=== PATIENT | male | born 1955 | race Caucasian/White ===

== ENCOUNTER 2020-05-10 17:22 | Outpatient (REF) | payer OTHER, SELFPAY | END 2020-05-10 17:23 | disposition home or self-care (01) | LOC: HO.LAB 17:22 | PROVIDERS: Visit Provider Internal Medicine | DX: Z20.828 Contact with and (suspected) exposure to other viral communicable diseases (principal) | CPT/HCPCS: C9803; U0003 ==

== ENCOUNTER → 2021-12-05 09:42 | Outpatient (BNVA) | payer OTHER, SELFPAY | PROVIDERS: PCP Internal Medicine; Visit Provider Surgery Vascular Surgery | DX: I71.4 Abdominal aortic aneurysm, without rupture (principal); K40.20 Bilateral inguinal hernia, without obstruction or gangrene, not specified as recurrent; Z79.82 Long term (current) use of aspirin; Z79.899 Other long term (current) drug therapy | CPT/HCPCS: 99202 ==

== ENCOUNTER → 2021-12-06 10:18 | Outpatient (BNVA) | payer OTHER, SELFPAY | PROVIDERS: PCP Internal Medicine; Visit Provider Surgery | DX: K40.20 Bilateral inguinal hernia, without obstruction or gangrene, not specified as recurrent (principal); I71.4 Abdominal aortic aneurysm, without rupture; I10 Essential (primary) hypertension; E78.00 Pure hypercholesterolemia, unspecified; Z95.5 Presence of coronary angioplasty implant and graft | CPT/HCPCS: 99202 ==

== ENCOUNTER → 2021-12-20 10:00 | Outpatient (BNVA) | payer OTHER, SELFPAY | PROVIDERS: PCP Internal Medicine; Visit Provider Surgery | DX: K40.20 Bilateral inguinal hernia, without obstruction or gangrene, not specified as recurrent (principal); I71.4 Abdominal aortic aneurysm, without rupture; E78.00 Pure hypercholesterolemia, unspecified; I10 Essential (primary) hypertension; K76.9 Liver disease, unspecified; Z95.5 Presence of coronary angioplasty implant and graft | CPT/HCPCS: 99212 ==

== ENCOUNTER 2022-12-05 09:12 | Outpatient (REF) | payer OTHER, SELFPAY | END 2022-12-05 09:13 | disposition home or self-care (01) | LOC: HO.US 09:12 | PROVIDERS: Visit Provider Surgery Vascular Surgery | DX: I71.40 Abdominal aortic aneurysm, without rupture, unspecified (principal) | CPT/HCPCS: 76706 ==

== ENCOUNTER 2023-01-24 08:40 | Outpatient (AMB) | payer OTHER, SELFPAY ==
--- NOTE | 2023-01-24 08:52 | A.OFFVIS_ITS ---
Intake Vital Signs 01/24/23 08:54 Height 5 ft 4 in Weight 130 lb BMI 22.3 BP 128/82 Blood Pressure Location Rt brachial Position Sitting Pulse 67 Pulse Source Pulse Oximeter Pulse Oximetry (%) 98 Oxygen Delivery Method Room Air Intake Visit Reasons: 1 year follow up AAA 12/05 Intake Note: Pt presents to the office for a 1 year follow up AAA. Pt states he is feeling good with no complaints. Allergies sulfamethazine Allergy (Mild, Verified 01/24/23 08:54) Hives sulfamethoxazole [From Bactrim] Allergy (Mild, Verified 01/24/23 08:54) Hives trimethoprim [From Bactrim] Allergy (Mild, Verified 01/24/23 08:54) Hives HPI 1 year follow up AAA 12/05 HPI Details Very pleasant 67-year-old gentleman presents for routine surveillance follow-up regarding and an aortic aneurysm. He was originally seen at [facility] where they E identified on CT scan at 3 cm aneurysm. He also has bilateral inguinal hernias. He has not had surgery on his hernias but has been continued to undergo evaluation regarding renal stones and hematuria. He now presents for follow-up. [facility] Medical History Hernia Hypercholesteremia Hypertension Surgical History History of heart artery stent (08/18/11) Social History Patient Tobacco Use Status: Former Tobacco user Quit Date: 08/13/2011 Review of Systems Const All systems reviewed & are unremarkable except as noted in HPI and below Reports no additional complaints ENT Reports Normal hearing present Card Denies chest pain, Denies chest pain at rest, Denies chest pain with activity and Denies pedal edema Resp Denies cough GI Denies abdominal pain Musc Denies abnormal gait, Denies muscle cramps and Denies radiating pain into limb Skin/Breast Denies skin ulcer and Denies wounds Neuro Reports Normal hearing present and Denies abnormal gait Psych Reports no additional complaints Physical Exam Vital Signs: Last Vital Signs Pulse 67 01/24/23 08:54 BP 128/82 01/24/23 08:54 Pulse Ox 98 01/24/23 08:54 Oxygen Delivery Method Room Air 01/24/23 08:54 BMI result Body Mass Index 22.3 Const General: cooperative, healthy appearing and comfortable Orientation/consciousness: oriented to person, oriented to place and oriented to time HEENT Head: Yes normal to inspection Neck Neck: Yes normal visual inspection Carotids: no bruits Chest Chest palpation & inspection: normal inspection of the chest Resp Effort & Inspection: normal respiratory effort and able to speak in complete sentences Auscultation: clear to auscultation bilaterally, no crackles, no rales, no rhonchi and no wheezes Cardio Rate: regular rate Rhythm: regular rhythm Heart sounds: S1 normal heart sound present and S2 normal heart sound present Bruits: no carotid bruits Peripheral pulses: Peripheral pulses 2+ throughout GI Inspection: Yes normal to inspection Skin Wounds: no wounds Hair: normal Neuro General: oriented to person, oriented to place and oriented to time Cranial nerves: Yes CN's II-XII intact bilaterally and Yes Normal hearing present Cognition (Neuro): normal cognition Motor exam (neuro): 5/5 motor strength present throughout Extrem Other: venous exam: No significant superficial varicosities or spider telangiectasias, minimal edema General: No clubbing, No cyanosis and No edema Psych Appearance: grossly normal Mental Status: mental status grossly normal Speech and movement: Normal speech and movement present Results Reviewed Results Reviewed: Aortic testing dated 12/05/2022 on ultrasound demonstrates a 2.7 cm aneurysm Assessment & Plan Assessment & Plan (1) AAA (abdominal aortic aneurysm) without rupture: Code(s): I71.4 - Abdominal aortic aneurysm, without rupture Plan: In short patient has radiologic evidence of a AAA on on ultrasound of about 3 cm. We have discussed the pathophysiology of aortic aneurysms and the risk of ruptures. We have discussed rupture risk based on size. In addition we have discussed conservative measures and risk factor modification for prevention of increase in size of the aneurysm. the patient is scheduled for surveillance follow-up in approximately 1 year. Thank you for allowing us to participate in the care of this patient Orders: Orders US abdominal aortic aneurysm 364 Days I71.4 - Abdominal aortic aneurysm, without rupture Coding Level of Care Code Est Pt Level 4 (58289) Diagnoses AAA (abdominal aortic aneurysm) without rupture I71.4
[2023-01-24 08:54] VITALS: BP 128/82; PULSE 67; O2SAT 98; BMI 22.3
== END 2023-01-24 09:36 | disposition home or self-care (01) ==
PROVIDERS: PCP Internal Medicine; Visit Provider Surgery Vascular Surgery
DX: I71.40 Abdominal aortic aneurysm, without rupture, unspecified (principal)
CPT/HCPCS: 99213

== ENCOUNTER → 2023-01-24 08:40 | Outpatient (BNVA) | payer OTHER, SELFPAY | PROVIDERS: PCP Internal Medicine; Visit Provider Surgery Vascular Surgery | DX: I71.40 Abdominal aortic aneurysm, without rupture, unspecified (principal) | CPT/HCPCS: 99212 ==

== ENCOUNTER 2024-01-13 08:02 | Outpatient (REF) | payer OTHER, SELFPAY ==
--- NOTE | ~2024-01-13 | US_ITS ---
EXAMINATION: US RETROPERITONEAL LIMITED (AORTA) CLINICAL INFORMATION: Abdominal aortic aneurysm, without rupture. COMPARISON: US retroperitoneal limited (aorta) 12/05/2022. TECHNIQUE: Fletcher-scale, color Doppler and spectral Doppler evaluation of the abdominal aorta. FINDINGS: Abdominal aorta is normal in caliber. The measurements of the aorta in maximum AP and transverse dimensions respectively are as follows: Proximal: 2.8 x 2.6 cm. Mid: 2.1 x 2.1 cm. Distal: 3.0 x 3.0 cm. PSV: 68.4 cm/s. The measurements of the common iliac arteries in maximum AP and TRV dimensions are as follows: Right Common Iliac Artery: 1.2 x 1.4 cm. Left Common Iliac Artery: 1.3 x 1.3 cm. US/US abdominal aortic aneurysm IMPRESSION: 3.0 x 3.0 cm infrarenal abdominal aortic aneurysm, previously measuring 2.9 x 2.8 cm.
== END 2024-01-13 08:03 | disposition home or self-care (01) ==
LOC: HO.US 08:02
PROVIDERS: PCP Internal Medicine; Visit Provider Surgery Vascular Surgery
DX: I71.40 Abdominal aortic aneurysm, without rupture, unspecified (principal)
CPT/HCPCS: 76706

== ENCOUNTER 2024-02-13 09:59 | Outpatient (AMB) | payer OTHER, SELFPAY ==
--- NOTE | 2024-02-13 10:01 | MHC.OFFVIS ---
Vital Signs 02/13/24 10:03 Height 5 ft 4 in Weight 130 lb BMI 22.3 Intake Visit Reasons: Follow Up 01/12 AAA Intake Note: 1 yr follow up AAA US 01/13/24, no complaints other than Left foot numbness and nerve pain on left leg Transportation Worker Required: No Accompanied by: Self / Same As Patient Allergies sulfamethazine Allergy (Mild, Verified 02/13/24 10:06) Hives sulfamethoxazole [From Bactrim] Allergy (Mild, Verified 02/13/24 10:06) Hives trimethoprim [From Bactrim] Allergy (Mild, Verified 02/13/24 10:06) Hives HPI HPI Follow Up 01/12 AAA: Details: Very pleasant 61-year-old gentleman presents for routine surveillance ultrasound of his aorta. He has had no interval issues. Reports he is doing relatively well. He does have occasional left lower extremity pain more so down the lateral aspect of the leg and he was concerned about that. Now presents for routine surveillance follow-up with arterial testing. Of note he is being maintained on an aspirin and statin. [facility] Medical History (Updated 02/13/24 @ 12:27 by Brandon Johnson MD) Hernia Hypertension Hypercholesteremia Surgical History (Updated 02/13/24 @ 10:07 by TOMMIE Freedman) History of left knee replacement (~2022) History of heart artery stent (08/18/11) Social History Patient Tobacco Use Status: Former Tobacco user Review of Systems Const All systems reviewed & are unremarkable except as noted in HPI and below Reports no additional complaints ENT Reports Normal hearing present Card Denies chest pain, Denies chest pain at rest, Denies chest pain with activity and Denies pedal edema Resp Denies cough GI Denies abdominal pain Musc Denies abnormal gait, Denies muscle cramps and Denies radiating pain into limb Skin/Breast Denies skin ulcer and Denies wounds Neuro Reports Normal hearing present and Denies abnormal gait Psych Reports no additional complaints Physical Exam Vital Signs: BMI result Body Mass Index 22.3 Const General: cooperative, healthy appearing and comfortable Orientation/consciousness: oriented to person, oriented to place and oriented to time HEENT Head: Yes normal to inspection Neck Neck: Yes normal visual inspection Carotids: no bruits Chest Chest palpation & inspection: normal inspection of the chest Resp Effort & Inspection: normal respiratory effort and able to speak in complete sentences Auscultation: clear to auscultation bilaterally, no crackles, no rales, no rhonchi and no wheezes Cardio Other: Left leg palpable DP and PT pulse Rate: regular rate Rhythm: regular rhythm Heart sounds: S1 normal heart sound present and S2 normal heart sound present Bruits: no carotid bruits Peripheral pulses: Peripheral pulses 2+ throughout GI Inspection: Yes normal to inspection Skin Wounds: no wounds Hair: normal Neuro General: oriented to person, oriented to place and oriented to time Cranial nerves: Yes CN's II-XII intact bilaterally and Yes Normal hearing present Cognition (Neuro): normal cognition Motor exam (neuro): 5/5 motor strength present throughout Extrem Other: venous exam: No significant superficial varicosities or spider telangiectasias, minimal edema General: No clubbing, No cyanosis and No edema Psych Appearance: grossly normal Mental Status: mental status grossly normal Speech and movement: Normal speech and movement present Results Reviewed Results Reviewed: Aortic ultrasound dated 01/13/2024 demonstrates aorta of 3 cm Assessment & Plan Assessment & Plan (1) AAA (abdominal aortic aneurysm) without rupture: Code(s): I71.4 - Abdominal aortic aneurysm, without rupture Category: Medical Qualifiers: Abdominal aorta location: infrarenal aorta Qualified Code(s): I71.43 - Infrarenal abdominal aortic aneurysm, without rupture Plan: In short patient has radiologic evidence of a AAA on ultrasound of 3 cm. We have discussed the pathophysiology of aortic aneurysms and the risk of ruptures. We have discussed rupture risk based on size. In addition we have discussed conservative measures and risk factor modification for prevention of increase in size of the aneurysm. the patient is scheduled for surveillance follow-up in approximately 1 year. Thank you for allowing us to participate in the care of this patient Please note a longitudinal relationship has been created with the patient and we have been following and surveillance this chronic condition. (2) Left leg pain: Code(s): M79.605 - Pain in left leg Category: Medical Plan: I do believe the leg pain is more musculoskeletal in nature. Should it persist may benefit from orthopedic evaluation. He does have palpable dorsalis pedis and posterior tibial pulses. Orders: Orders US abdominal aortic aneurysm 1 Year I71.43 - Infrarenal abdominal aortic aneurysm, without rupture Coding Level of Care Code Est Pt Level 4 (19503) Complex EM visit Add On G2211 Diagnoses Infrarenal abdominal aortic aneurysm (AAA) without rupture I71.43 Abdominal aorta location: infrarenal aorta Left leg pain M79.605
[2024-02-13 10:03] VITALS: BMI 22.3
== END 2024-02-13 10:27 | disposition home or self-care (01) ==
PROVIDERS: PCP Internal Medicine; Visit Provider Surgery Vascular Surgery
DX: I71.43 Infrarenal abdominal aortic aneurysm, without rupture (principal); M79.605 Pain in left leg
CPT/HCPCS: 99214; G2211

== ENCOUNTER → 2024-02-13 09:59 | Outpatient (BNVA) | payer OTHER, SELFPAY | PROVIDERS: PCP Internal Medicine; Visit Provider Surgery Vascular Surgery | DX: I71.43 Infrarenal abdominal aortic aneurysm, without rupture (principal); M79.605 Pain in left leg | CPT/HCPCS: 99212 ==

== ENCOUNTER 2025-02-05 08:47 | Outpatient (REF) | payer OTHER, SELFPAY ==
--- NOTE | ~2025-02-05 | US_ITS ---
EXAMINATION: US RETROPERITONEAL LIMITED (AORTA) CLINICAL INFORMATION: Follow-up abdominal aortic aneurysm. COMPARISON: January 13, 2024 and December 05, 2022. TECHNIQUE: Fletcher-scale, color Doppler and spectral Doppler evaluation of the abdominal aorta. FINDINGS: There is a hyperechoic lesion within the left lobe of the liver measuring 2.9 x 3.5 x 3.6 cm. Previously 2.7 x 4.2 x 3.5 cm. The measurements of the aorta in maximum AP and transverse dimensions respectively are as follows: Proximal: 2.3 x 2.6 cm. Previously 2.8 x 2.6 cm diameter. Mid: 2.3 x 1.8 cm. Previously 2.1 x 2.1 centimeter Distal: 3.0 x 2.2 cm. Previously 3.0 x 3.0 cm. The measurements of the common iliac arteries in maximum dimensions are as follows: Right: AP: 1.2 cm. TRV: 1.5 cm. Previously 1.2 x 1.4 cm. Left: AP: 1.5 cm. TRV: 1.2 cm. Previously 1.3 x 1.3 cm. US/US abdominal aortic aneurysm IMPRESSION: Indeterminate liver lesion measuring 2.5 x 3.5 x 3.6 cm. Follow-up with MRI abdomen/liver without and with IV contrast. The lesion was present in December 05, 2022 and may represent a cavernous hemangioma. Borderline abdominal aortic aneurysm in the distal region. Lumen measures 3.0 x 2.2 cm, previously 3.0 x 3.0 cm.. Electronically signed by: Abdoul Cam MD 02/05/2025 10:50 AM EDT
--- OUTSIDE RECORDS SUMMARY | 2025-02-05 09:20 | XMS_ITS | Clinical Summary ---
Author Organization [facility] it Address [address] [place] [address] Care Team Providers Care Kick Plate Installer Name Role Phone Margi Badillo MD Primary Care Provider [phone] Medical History Medical History Date Comments Hypertension 10/08/2012 DX:Hypertension Historical Medical DX 10/08/2012 DX:Hyperli pidemia LDL goal < 70 Obesity 10/08/2012 DX:Obesity S/P shoulder surgery 10/08/2012 DX:S/P shou lder surgery; COMMENT: S/p fall Family History Medical History Relation Name Comments Heart attack Father fatal Relation Name Status Comments Father Social History Tobacco Use Types Packs/Day Years Used Date Smoking Tobacco: Former Alcohol Use Standard Drinks/Week Comments Not Asked 0 (1 standard drink = 0.6 oz pur e alcohol) Sex and Gender Information Value Date Recorded Sex Assigned at Not on file Legal Sex Male 2:07 AM EST Gender Identity Not on file Sexual Orientation Not on file Obstetrics History Plan of Treatment Health Maintenance Due Date Last Done Comments DTaP,Tdap,and Td Vaccines (1 - Tdap) 02/04/1975 Pneumococcal Vaccine: 50+ Ye ars (1 of 1 - PCV) 02/04/2006 Zoster Vaccines (1 of 2) 02/04/2006 Abdominal Aortic Aneurysm (A AA) Screen 05/16/2022 Cholesterol Screening (Lipid Panel) 05/16/2022 Colorectal Cancer Screening: Colonoscopy 05/16/2022 Falls Risk Assessment 05/16/2022 Hepatitis C Screening 05/16/2022 Hypertension/CHF/CAD Annual BMP Blood Test 05/16/2022 Social Influencers of Health Screening 05/16/2022 Depression Screening 06/03/2024 COVID-19 Vaccine ( - 2023-2 5 season) 2025 Influenza Vaccine (#1) 2025 RSV Immunization Adult Patie nts (1 - 1-dose 75+ series) 02/04/2031 HIB Vaccines Aged Out No longer eligi ble based on patient's age to complete this topic HPV Vaccines Aged Out No longer eligi ble based on patient's age to complete this topic Hepatitis A Vaccines Aged Out No long er eligible based on patient's age to complete this topic Hepatitis B Vaccines Aged Out No long er eligible based on patient's age to complete this topic IPV Vaccines Aged Out No longer eligi ble based on patient's age to complete this topic MMR Vaccines Aged Out No longer eligi ble based on patient's age to complete this topic Meningococcal ACWY Vaccine Aged Out N o longer eligible based on patient's age to complete this topic Meningococcal B Vaccine Aged Out No l onger eligible based on patient's age to complete this topic RSV Immunization Patients Un sudeep 20 months Aged Out No longer eligible b ased on patient's age to complete this topic Varicella Vaccines Aged Out No longer eligible based on patient's age to complete this topic Care Teams Kick Plate Installer Relationship Specialty Start Date End Date Margi Badillo MD [place]am[address] [place] [id number] PCP - General Internal Medicine 08/29/11
== END 2025-02-05 08:48 | disposition home or self-care (01) ==
LOC: HO.US 08:47
PROVIDERS: Visit Provider Surgery Vascular Surgery
DX: I71.43 Infrarenal abdominal aortic aneurysm, without rupture (principal)
CPT/HCPCS: 76706

== ENCOUNTER → 2025-02-05 08:52 | Outpatient (BNV) | payer OTHER, SELFPAY | PROVIDERS: Visit Provider Radiology Diagnostic Radiology | DX: I71.43 Infrarenal abdominal aortic aneurysm, without rupture (principal) | CPT/HCPCS: 76706 ==

== ENCOUNTER 2025-03-16 09:46 | Outpatient (AMB) | payer OTHER, SELFPAY ==
--- NOTE | 2025-03-16 09:47 | MHC.OFFVIS ---
Vital Signs 03/16/25 09:49 Height 5 ft 4 in Weight 130 lb BMI 22.3 Intake Visit Reasons: 1 year follow up AAA 02/05/25 Intake Note: 1 yr follow up AAA 02/05/25 Allergies sulfamethazine Allergy (Mild, Verified 03/16/25 09:50) Hives sulfamethoxazole (From Bactrim) Allergy (Mild, Verified 03/16/25 09:50) Hives trimethoprim (From Bactrim) Allergy (Mild, Verified 03/16/25 09:50) Hives HPI HPI 1 year follow up AAA 02/05/25: Details: The patient is a 70-year-old male presenting with an annual follow-up for an aortic aneurysm. The ultrasound of the aorta shows no change, which is reassuring to the patient. He now presents for routine aortic surveillance. During the visit, a liver mass was noted, which the patient was previously unaware of. The mass is approximately 3.5 cm in size, and the patient denies any alcohol consumption related to this finding. [facility] Medical History Hernia Hypertension Hypercholesteremia Surgical History History of left knee replacement (~2022) History of heart artery stent (08/18/11) Social History Patient Tobacco Use Status: Former Tobacco user Review of Systems Const All systems reviewed & are unremarkable except as noted in HPI and below Reports no additional complaints ENT Reports Normal hearing present Card Denies chest pain, Denies chest pain at rest, Denies chest pain with activity and Denies pedal edema Resp Denies cough GI Denies abdominal pain Musc Denies abnormal gait, Denies muscle cramps and Denies radiating pain into limb Skin/Breast Denies skin ulcer and Denies wounds Neuro Reports Normal hearing present and Denies abnormal gait Psych Reports no additional complaints Physical Exam Vital Signs: BMI result Body Mass Index 22.3 Const General: cooperative, healthy appearing and comfortable Orientation/consciousness: oriented to person, oriented to place and oriented to time HEENT Head: Yes normal to inspection Neck Neck: Yes normal visual inspection Carotids: no bruits Chest Chest palpation & inspection: normal inspection of the chest Resp Effort & Inspection: normal respiratory effort and able to speak in complete sentences Auscultation: clear to auscultation bilaterally, no crackles, no rales, no rhonchi and no wheezes Cardio Rate: regular rate Rhythm: regular rhythm Heart sounds: S1 normal heart sound present and S2 normal heart sound present Bruits: no carotid bruits Peripheral pulses: Peripheral pulses 2+ throughout GI Inspection: Yes normal to inspection Skin Wounds: no wounds Hair: normal Neuro General: oriented to person, oriented to place and oriented to time Cranial nerves: Yes CN's II-XII intact bilaterally and Yes Normal hearing present Cognition (Neuro): normal cognition Motor exam (neuro): 5/5 motor strength present throughout Extrem Other: venous exam: No significant superficial varicosities or spider telangiectasias, minimal edema General: No clubbing, No cyanosis and No edema Psych Appearance: grossly normal Mental Status: mental status grossly normal Speech and movement: Normal speech and movement present Results Reviewed Results Reviewed: Aortic ultrasound measures 3 cm in diameter. Of note there is an indeterminate liver lesion a proximally 3.6 cm. Study from 02/05/2025. Written report and images were reviewed. Assessment & Plan Assessment & Plan (1) AAA (abdominal aortic aneurysm) without rupture: Code(s): I71.4 - Abdominal aortic aneurysm, without rupture Category: Medical Qualifiers: Abdominal aorta location: infrarenal aorta Qualified Code(s): I71.43 - Infrarenal abdominal aortic aneurysm, without rupture Plan: In short patient has radiologic evidence of a AAA on 3 cm on ultrasound. We have discussed the pathophysiology of aortic aneurysms and the risk of ruptures. We have discussed rupture risk based on size. In addition we have discussed conservative measures and risk factor modification for prevention of increase in size of the aneurysm. the patient is scheduled for surveillance follow-up in approximately 1 year. Thank you for allowing us to participate in the care of this patient (2) Liver mass, left lobe: Code(s): R16.0 - Hepatomegaly, not elsewhere classified Category: Medical Plan: Incidental finding of a liver mass. The images were reviewed with Radiology. Will obtain MRI with contrast per request of radiology. Thank you for allowing us to assist in his care. Plan Patient was informed and verbally consented to the use of an ambient scribe for clinic note documentation during this visit. Orders: Orders MR angio abdomen wo/w con Today R16.0 - Hepatomegaly, not elsewhere classified Creatinine Today R16.0 - Hepatomegaly, not elsewhere classified US abdominal aortic aneurysm 1 Year I71.43 - Infrarenal abdominal aortic aneurysm, without rupture Blood Urea Nitrogen Today R16.0 - Hepatomegaly, not elsewhere classified Coding Level of Care Code Est Pt Level 4 (90742) Complex EM visit Add On G2211 Diagnoses Infrarenal abdominal aortic aneurysm (AAA) without rupture I71.43 Abdominal aorta location: infrarenal aorta Liver mass, left lobe R16.0
[2025-03-16 09:49] VITALS: BMI 22.3
--- OUTSIDE RECORDS SUMMARY | 2025-03-16 10:57 | XMS_ITS | Clinical Summary ---
Author Organization [facility] ity Address [address] [place] [address] Care Team Providers Care Data Processing Auditor Name Role Phone Margi Badillo MD Primary Care Provider [phone] Medical History Medical History Date Comments Hypertension [...] Health Maintenance Due Date Last Done Comments Colorectal Cancer Screening: Colonoscopy 1956 DTaP,Tdap,and Td Vaccines (1 - Tdap) 02/04/1975 Pneumococcal Vaccine: 50+ Ye ars (1 of 1 - PCV) 02/04/2006 Zoster Vaccines (1 of 2) 02/04/2006 Abdominal Aortic Aneurysm (A AA) Screen 05/16/2022 Cholesterol Screening (Lipid Panel) 05/16/2022 Falls Risk Assessment 05/16/2022 Hepatitis C [...] age to complete this topic Care Teams Data Processing Auditor Relationship Specialty Start Date End Date Margi Badillo MD [place] Pram[facility] De La GarzaStewardALONDR[place] [phone] PCP - General Internal Medicine 08/29/11
== END 2025-03-16 10:18 | disposition home or self-care (01) ==
LOC: HO.HVS 09:46
PROVIDERS: Visit Provider Surgery Vascular Surgery
DX: I71.43 Infrarenal abdominal aortic aneurysm, without rupture (principal); R16.0 Hepatomegaly, not elsewhere classified
CPT/HCPCS: 99214; G2211

== ENCOUNTER → 2025-03-16 09:46 | Outpatient (BNVA) | payer OTHER, SELFPAY | PROVIDERS: Visit Provider Surgery Vascular Surgery | DX: I71.43 Infrarenal abdominal aortic aneurysm, without rupture (principal); R16.0 Hepatomegaly, not elsewhere classified | CPT/HCPCS: 99212 ==

== ENCOUNTER → 2025-04-20 09:13 | Outpatient (BNV) | payer OTHER, SELFPAY | PROVIDERS: Visit Provider Radiology Diagnostic Radiology | DX: D18.03 Hemangioma of intra-abdominal structures (principal); N28.1 Cyst of kidney, acquired; K42.9 Umbilical hernia without obstruction or gangrene | CPT/HCPCS: 74183 ==

== ENCOUNTER 2025-04-20 09:19 | Outpatient (REF) | payer OTHER, SELFPAY ==
--- NOTE | ~2025-04-20 | MR_ITS ---
EXAMINATION: MR ABDOMEN WITHOUT AND WITH CONTRAST CLINICAL INFORMATION: R16.0. Hepatomegaly. COMPARISON: Correlated to Limited ultrasound dated February 05, 2025 TECHNIQUE: MR abdomen was performed without and with use of 6.0 mL intravenous [(Gadavist) gadolinium contrast. Postcontrast images are performed in multiphase dynamic sequences. Imaging was performed in 3 planes. No reported immediate complications FINDINGS: LUNG BASES: No signal abnormality or enhancing lesion. LIVER, GALLBLADDER, AND BILIARY TREE: Liver measures 15 cm. There is a 4 x 3.5 x 2.4 cm lobulated predominantly hypointense T1 hyperintense T2 peripheral, discontinuous patulous and centripetal enhancing lesion, left hepatic lobe. There is a 1.2 x 0.9 x 1.1 cm predominantly hypointense T1 hyperintense T2 patulous centripetal enhancing lesion, right hepatic lobe. There are a few, less than 0.3 cm fluid signal characteristic lesions in the periphery of the right hepatic lobe. Main portal veins, hepatic veins and intrahepatic portion of the IVC are patent. No restricted diffusion. Fluid-filled nondistended gallbladder without pericholecystic fluid collection or gallbladder wall thickening. No intrahepatic or extrahepatic biliary ductal dilatation. PANCREAS: No solid or cystic mass. No main pancreatic ductal dilatation. No peripancreatic fluid collections. SPLEEN: 8 cm. No solid or cystic lesion. ADRENAL GLANDS: No nodular lesion. Mild soft tissue fullness left adrenal gland. KIDNEYS AND URETERS: Bilateral less than 1.1 cm nonenhancing fluid signal characteristic lesions in both kidneys, the largest in the upper pole right kidney. No hydronephrosis. No enhancing renal lesion. GASTROINTESTINAL TRACT: No intestinal obstruction pattern. No ascites. Numerous diverticula in the sigmoid colon and left hemicolon, no fully evaluated.. ABDOMINAL WALL: Small fat-containing umbilical hernia. LYMPH NODES: Nonspecific prominent retroperitoneal lymph nodes. VASCULAR: There is a 3 cm diameter of the infrarenal/distal abdominal aorta without IV contrast extravasation or intimal flap. OSSEOUS STRUCTURES: Multilevel thoracolumbar spondylosis severe at L2-3, L3-4 and L4-5 levels. Old compression deformity representing 40% volume loss at T8 vertebra similar findings to a lesser extent at T9, T10 and T11. MR/MR abdomen wo/w con IMPRESSION: Hemangiomata, hepatic. 3 cm aneurysm, infrarenal/distal abdominal aorta. Bilateral simple renal cysts. Small fat-containing umbilical hernia. The articular disease, left hemicolon. Old compression fracture deformities lower thoracic spine and multilevel thoracolumbar spondylosis. Electronically signed by: Pedrito White MD 04/20/2025 10:42 AM ANGELINE BERGER
== END 2025-04-20 09:20 | disposition home or self-care (01) ==
LOC: HO.MRI 09:19
PROVIDERS: Visit Provider Surgery Vascular Surgery
DX: R16.0 Hepatomegaly, not elsewhere classified (principal)
CPT/HCPCS: 74183; A9585

== ENCOUNTER 2025-05-19 09:06 | Outpatient (AMB) | payer OTHER, SELFPAY ==
--- NOTE | 2025-05-19 09:15 | A.OFFVIS_ITS ---
Vital Signs 05/19/25 09:20 Height 5 ft 4 in Weight 130 lb BMI 22.3 Intake Visit Reasons: follow up s/p MRI Abdomen 04/20/25 Intake Note: follow up MRI Abd 04/20/25 for incidental finding of Liver mass. 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 He was initially seen for an aortic aneurysm and a liver lesion was incidentally found on an ultrasound study dated 02/05/2025, which prompted an MRI for better evaluation. The patient also reports a recent history of bronchitis, which started with a cough and mucus. He was seen at an outside facility and was prescribed antibiotics for this condition. In terms of his abdomen totally asymptomatic. He now presents for follow-up with MRI [facility] Medical History Hernia Hypertension Hypercholesteremia Surgical History History of left knee replacement (~2022) History of heart artery stent (08/18/11) Social History Patient Tobacco Use Status: Former Tobacco user Review of Systems Const All systems reviewed & are unremarkable except as noted in HPI and below Reports no additional complaints ENT Reports Normal hearing present Card Denies chest pain, Denies chest pain at rest, Denies chest pain with activity and Denies pedal edema Resp Denies cough GI Denies abdominal pain Musc Denies abnormal gait, Denies muscle cramps and Denies radiating pain into limb Skin/Breast Denies skin ulcer and Denies wounds Neuro Reports Normal hearing present and Denies abnormal gait Psych Reports no additional complaints Physical Exam Vital Signs: BMI result Body Mass Index 22.3 Const General: cooperative, healthy appearing and comfortable Orientation/consciousness: oriented to person, oriented to place and oriented to time HEENT Head: Yes normal to inspection Neck Neck: Yes normal visual inspection Carotids: no bruits Chest Chest palpation & inspection: normal inspection of the chest Resp Effort & Inspection: normal respiratory effort and able to speak in complete sentences Auscultation: clear to auscultation bilaterally, no crackles, no rales, no rhonchi and no wheezes Cardio Rate: regular rate Rhythm: regular rhythm Heart sounds: S1 normal heart sound present and S2 normal heart sound present Bruits: no carotid bruits Peripheral pulses: Peripheral pulses 2+ throughout GI Inspection: Yes normal to inspection Skin Wounds: no wounds Hair: normal Neuro General: oriented to person, oriented to place and oriented to time Cranial nerves: Yes CN's II-XII intact bilaterally and Yes Normal hearing present Cognition (Neuro): normal cognition Motor exam (neuro): 5/5 motor strength present throughout Extrem Other: venous exam: No significant superficial varicosities or spider telangiectasias, minimal edema General: No clubbing, No cyanosis and No edema Psych Appearance: grossly normal Mental Status: mental status grossly normal Speech and movement: Normal speech and movement present Assessment & Plan Assessment & Plan (1) AAA (abdominal aortic aneurysm) without rupture: Code(s): I71.4 - Abdominal aortic aneurysm, without rupture Category: Medical Qualifiers: Abdominal aorta location: infrarenal aorta Qualified Code(s): I71.43 - Infrarenal abdominal aortic aneurysm, without rupture Plan: See below (2) Hemangioma of liver: Code(s): D18.03 - Hemangioma of intra-abdominal structures Category: Medical Plan: I discussed the MRI results with the patient, explaining that the liver finding we were monitoring appears normal and is not a cause for concern. I informed him that no further evaluation of this finding is necessary. We also confirmed the plan for his aortic aneurysm surveillance, advising him to return in one year for a follow-up ultrasound. The patient expressed understanding and agreement with the plan. Plan Patient was informed and verbally consented to the use of an ambient scribe for clinic note documentation during this visit. Patient Instructions: - The spot found on your liver during a previous scan is normal, and there is nothing to worry about. - You will need to come back in one year for an ultrasound to continue monitoring your aorta. - Continue taking the antibiotic for your bronchitis as prescribed by the other doctor. Coding Level of Care Code Est Pt Level 4 (90133) Diagnoses Infrarenal abdominal aortic aneurysm (AAA) without rupture I71.43 Abdominal aorta location: infrarenal aorta Hemangioma of liver D18.03
[2025-05-19 09:20] VITALS: BMI 22.3
--- OUTSIDE RECORDS SUMMARY | 2025-05-19 10:00 | XMS_ITS | Clinical Summary ---
Author Organization [facility] ity Address [address] [place] [address] Care Team Providers Care Outboard Motor Mechanic Name Role Phone Margi Badillo MD Primary Care Provider [phone] Medical History Medical History Date Comments Hypertension [...] on file Sexual Orientation Not on file Plan of Treatment Health Maintenance Due Date [...] Screening 05/16/2022 Depression Screening 06/03/2024 COVID-19 Vaccine (2024-2 6 season) 2025 Influenza Vaccine (#1) 2025 RSV [...] age to complete this topic Care Teams Outboard Motor Mechanic Relationship Specialty Start Date End Date Margi Badillo MD [address] [place] [address] [place] [address] PCP - General Internal Medicine 08/29/11
== END 2025-05-19 09:49 | disposition home or self-care (01) ==
LOC: HO.HVS 09:07
PROVIDERS: Visit Provider Surgery Vascular Surgery
DX: I71.43 Infrarenal abdominal aortic aneurysm, without rupture (principal); D18.03 Hemangioma of intra-abdominal structures
CPT/HCPCS: 99214

== ENCOUNTER → 2025-05-19 09:06 | Outpatient (BNVA) | payer OTHER, SELFPAY | PROVIDERS: Visit Provider Surgery Vascular Surgery | DX: I71.43 Infrarenal abdominal aortic aneurysm, without rupture (principal); D18.03 Hemangioma of intra-abdominal structures; J20.9 Acute bronchitis, unspecified | CPT/HCPCS: 99212 ==